=== PATIENT | female | born 1940 | race Asian ===

== ENCOUNTER 2018-12-03 09:11 | Emergency (ER) | payer OTHER, MEDICAID ==
[~2018-12-03] VITALS: Ht 152.4 cm; Wt 66.2 kg
[2018-12-03] MEDS ORDERED: METFORMIN HYDR500 M1 PO (10:10)
[2018-12-03] MEDS ORDERED: LIPI10 PO (10:10)
[2018-12-03] MEDS ORDERED: LOSARTAN POTASS25 M1 PO (10:10)
[2018-12-03] MEDS ORDERED: COLACE100 MG PO (10:11)
[2018-12-03 10:36] LABS: BASOPHIL % 0.2 % (0-2); PLATELET COUNT 168 x10^3mcL (130-400); RED CELL DISTRIBUTION WIDTH 14.2 % (11.5-14.5)
[2018-12-03 10:41] LABS: CALCIUM 9.3 mg/dL (8.5-10.1); CARBON DIOXIDE 27.1 mmol/L (21-32); CHLORIDE SERUM 104 mmol/L (98-107); GLUCOSE SERUM 186 mg/dL (74-106); SODIUM SERUM 138 mmol/L (136-145)
[2018-12-03 10:45] LABS: ALBUMIN 3.8 g/dL (3.4-5.0); ALKALINE PHOSPHATASE 39 U/L (46-116); ALT/SGPT 21 U/L (14-59); AST/SGOT 17 U/L (15-37); TOTAL PROTEIN, SERUM 7.5 g/dL (6.4-8.2)
[2018-12-03 11:40] VITALS: BP 120/51
== END 2018-12-03 11:40 | disposition left against medical advice (07) ==
LOC: ED 09:11
PROVIDERS: Emergency Medicine
DX: R07.2 Precordial pain (principal); R06.02 Shortness of breath; R11.0 Nausea; I10 Essential (primary) hypertension; E11.9 Type 2 diabetes mellitus without complications; E78.00 Pure hypercholesterolemia, unspecified
CPT/HCPCS: 36415; Q0092

== ENCOUNTER 2020-09-08 08:20 | Emergency (ER) | payer OTHER ==
[~2020-09-08] VITALS: Ht 149.9 cm; Wt 57.6 kg
[~2020-09-08 08:20] MED LIST: COLACE100 MG PO; LIPI10 PO; LOSARTAN POTASS25 M1 PO; METFORMIN HYDR500 M1 PO
[2020-09-08 08:27] VITALS: Ht 149.9 cm; Wt 57.6 kg
[2020-09-08 09:18] VITALS: BP 147/55
== END 2020-09-08 09:18 | disposition home or self-care (01) ==
LOC: ED 08:20
DX: M54.41 Lumbago with sciatica, right side (principal); I10 Essential (primary) hypertension; E11.9 Type 2 diabetes mellitus without complications; E78.00 Pure hypercholesterolemia, unspecified
CPT/HCPCS: J1885